=== PATIENT | female | born 1935 | race Caucasian/White ===

== ENCOUNTER 2018-01-08 14:01 | Inpatient (IN) | payer MEDICARE, OTHER ==
[2018-01-08 14:42] LABS: ADD MAN DIFF? NO
[2018-01-08 14:44] LABS: WHITE BLOOD COUNT 8.3 10^3/ul (4.8-10.8)
[2018-01-08 14:44] LABS: BASOPHILS % 0.2 % (0.0-2.0); EOSINOPHILS # 0.2 10^3/ul (0.0-0.5); EOSINOPHILS % 1.9 % (0.0-7.0); HEMATOCRIT 30.8 % (37.0-47.0); HEMOGLOBIN 10.2 g/dl (12.0-16.0); LYMPHOCYTES # 2.4 10^3/ul (0.8-2.9); LYMPHOCYTES % 28.6 % (15.0-51.0); MEAN CORPUSCULAR HEMOGLOBIN 29.2 pg (29.0-33.0); MEAN CORPUSCULAR HGB CONC 33.1 g/dl (32.0-37.0); MEAN CORPUSCULAR VOLUME 88.3 fl (82.0-101.0); MEAN PLATELET VOLUME 10.6 fl (7.4-10.4); MONOCYTE # 0.6 10^3/ul (0.3-0.9); MONOCYTES % 7.2 % (0.0-11.0); NEUTROPHIL # 5.1 10^3/ul (1.6-7.5); NEUTROPHILS % 61.6 % (39.0-77.0); PLATELET COUNT 315 10^3/UL (140-415); RED BLOOD COUNT 3.49 10^6/ul (4.20-5.40); RED CELL DISTRIBUTION WIDTH 14.5 % (11.5-14.5)
[2018-01-08 14:57] LABS: HEMOGLOBIN A1C 5.7 % (0-5.9)
[2018-01-08 15:04] LABS: ANION GAP 20 (8-16); BLOOD UREA NITROGEN 20 mg/dl (7-20); CALCIUM 9.3 mg/dl (8.4-10.2); CARBON DIOXIDE 24 mmol/L (21-31); CHLORIDE 111 mmol/L (97-110); CREATININE 1.23 mg/dl (0.44-1.00); GLUCOSE 114 mg/dl (70-220); PROTIME 13.3 Sec (11.9-14.9); SODIUM 150 mmol/L (135-144)
[2018-01-08 15:05] LABS: PARTIAL THROMBOPLASTIN TIME 23.2 Sec (25.0-35.0)
[2018-01-08 15:18] LABS: TROPONIN-I < 0.012 ng/ml (0.00-0.12)
[2018-01-08 16:13] LABS: ADD UMIC YES; UR ASCORBIC ACID NEGATIVE (NEGATIVE); UR BILIRUBIN (Dip) NEGATIVE (NEGATIVE); UR BLOOD (Dip) 1+ mg/dL (NEGATIVE); UR CLARITY CLEAR (CLEAR); UR COLOR YELLOW (YELLOW); UR GLUCOSE (Dip) NEGATIVE (NEGATIVE); UR KETONES (Dip) NEGATIVE (NEGATIVE); UR LEUKOCYTE ESTERASE (Dip) TRACE Leu/ul (NEGATIVE); UR NITRITE (Dip) NEGATIVE (NEGATIVE); UR RBC 1 /HPF (0-5); UR TOTAL PROTEIN (Dip) NEGATIVE (NEGATIVE); UR UROBILINOGEN (Dip) NEGATIVE (NEGATIVE); UR WBC 10 /HPF (0-5)
[2018-01-08] MEDS: SOD CHLORIDE 0.45% 1,000 ML IV (16:15)
[2018-01-08] MEDS: ASPIRIN 300 MG SUPP PR (16:15)
[2018-01-08] MEDS ORDERED: ACETAMINOPHEN 325 MG TAB PO (16:30)
[2018-01-08] MEDS ORDERED: ONDANSETRON 4 MG INJ IV (16:30)
[2018-01-08] MEDS ORDERED: NACL 0.9% 3 ML SYG IV (17:00)
[2018-01-08] MEDS: SOD CHLORIDE 0.9% 1,000 ML IV (17:04)
[2018-01-08 17:05] LABS: AMPHETAMINE/METHAMPHETAMINE Negative (NEGATIVE); BARBITURATES Negative (NEGATIVE); BENZODIAZEPINES Negative (NEGATIVE); CANNABINOIDS Negative (NEGATIVE); COCAINE Negative (NEGATIVE); OPIATES Negative (NEGATIVE)
[2018-01-08 17:26] LABS: B-TYPE NATRIURETIC PEPTIDE 570 PG/ML (0-450)
[2018-01-08] MEDS: RIVAROXABAN 20 MG TABLET PO (17:29)
[2018-01-08] MEDS: hydrALAzine 20 MG INJ IV (18:44)
[2018-01-08] MEDS: LORAZEPAM 2 MG INJ IV (20:43)
[2018-01-08] MEDS: ACETAMINOPHEN 650 MG SUPP PR (20:43)
[2018-01-08] MEDS ORDERED: HEPARIN 5,000 UNIT/0.5 ML VIAL SC (21:00)
[2018-01-08] MEDS: ATORVASTATIN 80 MG TAB PO (21:00)
[2018-01-08] MEDS: HEPARIN 5,000 UNIT/0.5 ML VIAL SC (21:12)
[2018-01-08] MEDS: morphine 2 MG INJ IV (23:02)
[2018-01-08] MEDS: ONDANSETRON 4 MG INJ IV (23:02)
[2018-01-09] MEDS: hydrALAzine 20 MG INJ IV ×2 (05:50→15:54)
[2018-01-09] MEDS: LEVOTHYROXINE 50 MCG TAB PO (05:51)
[2018-01-09] MEDS: SOD CHLORIDE 0.9% 1,000 ML IV (06:20)
[2018-01-09 07:09] LABS: WHITE BLOOD COUNT 7.5 10^3/ul (4.8-10.8)
[2018-01-09 07:09] LABS: ADD MAN DIFF? NO; BASOPHILS % 0.5 % (0.0-2.0); EOSINOPHILS # 0.2 10^3/ul (0.0-0.5); EOSINOPHILS % 2.5 % (0.0-7.0); HEMATOCRIT 32.4 % (37.0-47.0); HEMOGLOBIN 10.8 g/dl (12.0-16.0); LYMPHOCYTES # 2.7 10^3/ul (0.8-2.9); LYMPHOCYTES % 35.3 % (15.0-51.0); MEAN CORPUSCULAR HEMOGLOBIN 29.3 pg (29.0-33.0); MEAN CORPUSCULAR HGB CONC 33.3 g/dl (32.0-37.0); MEAN PLATELET VOLUME 10.2 fl (7.4-10.4); MONOCYTE # 0.6 10^3/ul (0.3-0.9); MONOCYTES % 8.1 % (0.0-11.0); NEUTROPHILS % 52.8 % (39.0-77.0); PLATELET COUNT 337 10^3/UL (140-415); RED BLOOD COUNT 3.68 10^6/ul (4.20-5.40); RED CELL DISTRIBUTION WIDTH 14.5 % (11.5-14.5)
[2018-01-09 07:30] LABS: ALANINE AMINOTRANSFERASE 34 IU/L (13-69); ALBUMIN 3.9 g/dl (3.3-4.9); ALBUMIN/GLOBULIN RATIO 0.97; ALKALINE PHOSPHATASE 69 IU/L (42-121); ANION GAP 18 (8-16); ASPARTATE AMINO TRANSFERASE 44 IU/L (15-46); BLOOD UREA NITROGEN 17 mg/dl (7-20); CALCIUM 9.2 mg/dl (8.4-10.2); CARBON DIOXIDE 25 mmol/L (21-31); CHLORIDE 112 mmol/L (97-110); GLUCOSE 108 mg/dl (70-220); POTASSIUM 4.1 mmol/L (3.5-5.1); SODIUM 151 mmol/L (135-144); TOTAL PROTEIN 7.9 g/dl (6.1-8.1)
[2018-01-09 07:32] LABS: CHOL/HDL RATIO 3.8 RATIO; CHOLESTEROL 176 mg/dl (100-200); HDL CHOLESTEROL 46 mg/dl (33-92); LDL CHOLESTEROL,CALCULATED 79 mg/dl; TRIGLYCERIDES 256 mg/dl (0-149)
[2018-01-09 07:32] LABS: PHOSPHORUS 3.9 mg/dl (2.5-4.9)
[2018-01-09] MEDS: EXEMESTANE 25 MG TAB PO (11:00)
[2018-01-09] MEDS: ASPIRIN 81 MG TAB PO (11:01)
[2018-01-09] MEDS: HEPARIN 5,000 UNIT/0.5 ML VIAL SC ×2 (11:01→20:28)
[2018-01-09] MEDS: AMLODIPINE 10 MG TAB PO (11:01)
[2018-01-09] MEDS: SOD CHLORIDE 0.45% 1,000 ML IV ×2 (11:40→16:09)
[2018-01-09 14:45] LABS: SODIUM,URINE RANDOM 144 mmol/L (30-90)
[2018-01-09 14:55] LABS: CREATININE,URINE RANDOM 85.97 mg/dl (20-320); PROTEIN/CREAT RATIO 0.32 RATIO
[2018-01-09] MEDS ORDERED: DEXTROSE 5% 1,000 ML IV (16:30)
[2018-01-09] MEDS: ACETAMINOPHEN 650 MG SUPP PR ×3 (16:31→19:47)
[2018-01-09] MEDS: ATORVASTATIN 80 MG TAB PO (21:19)
[2018-01-09] MEDS: LORAZEPAM 2 MG INJ IV (21:46)
[2018-01-10] MEDS: hydrALAzine 20 MG INJ IV (00:18)
[2018-01-10] MEDS: SOD CHLORIDE 0.45% 1,000 ML IV ×2 (00:27→19:10)
[2018-01-10] MEDS: ACETAMINOPHEN 650 MG SUPP PR (01:50)
[2018-01-10] MEDS: LEVOTHYROXINE 50 MCG TAB PO (05:28)
[2018-01-10 07:19] LABS: ADD MAN DIFF? NO
[2018-01-10 07:27] LABS: BASOPHILS % 0.4 % (0.0-2.0); EOSINOPHILS # 0.1 10^3/ul (0.0-0.5); EOSINOPHILS % 1.3 % (0.0-7.0); HEMATOCRIT 31.8 % (37.0-47.0); HEMOGLOBIN 10.5 g/dl (12.0-16.0); LYMPHOCYTES # 3.1 10^3/ul (0.8-2.9); LYMPHOCYTES % 28.8 % (15.0-51.0); MEAN CORPUSCULAR HEMOGLOBIN 29.6 pg (29.0-33.0); MEAN CORPUSCULAR VOLUME 89.6 fl (82.0-101.0); MEAN PLATELET VOLUME 10.6 fl (7.4-10.4); MONOCYTE # 0.9 10^3/ul (0.3-0.9); MONOCYTES % 8.1 % (0.0-11.0); NEUTROPHIL # 6.6 10^3/ul (1.6-7.5); NEUTROPHILS % 60.6 % (39.0-77.0); PLATELET COUNT 331 10^3/UL (140-415); RED BLOOD COUNT 3.55 10^6/ul (4.20-5.40); RED CELL DISTRIBUTION WIDTH 14.6 % (11.5-14.5)
[2018-01-10 07:27] LABS: WHITE BLOOD COUNT 10.9 10^3/ul (4.8-10.8)
[2018-01-10 07:55] LABS: URIC ACID 6.3 mg/dl (3.1-7.9)
[2018-01-10 07:55] LABS: CREATINE KINASE 321 IU/L (23-200)
[2018-01-10 07:58] LABS: ANION GAP 19 (8-16); BLOOD UREA NITROGEN 17 mg/dl (7-20); CALCIUM 9.3 mg/dl (8.4-10.2); CARBON DIOXIDE 22 mmol/L (21-31); CHLORIDE 109 mmol/L (97-110); CREATININE 1.23 mg/dl (0.44-1.00); GLUCOSE 113 mg/dl (70-220); POTASSIUM 4.2 mmol/L (3.5-5.1); SODIUM 146 mmol/L (135-144)
[2018-01-10 08:13] LABS: PHOSPHORUS 3.3 mg/dl (2.5-4.9)
[2018-01-10] MEDS: ASPIRIN 81 MG TAB PO (08:27)
[2018-01-10] MEDS: AMLODIPINE 10 MG TAB PO (08:27)
[2018-01-10] MEDS: HEPARIN 5,000 UNIT/0.5 ML VIAL SC ×2 (08:32→21:20)
[2018-01-10] MEDS: EXEMESTANE 25 MG TAB PO (11:40)
[2018-01-10] MEDS: ATORVASTATIN 80 MG TAB PO (21:18)
[2018-01-10] MEDS: LORAZEPAM 2 MG INJ IV (21:21)
[2018-01-11] MEDS: LEVOTHYROXINE 50 MCG TAB PO (06:14)
[2018-01-11 07:17] LABS: ADD MAN DIFF? NO
[2018-01-11 07:24] LABS: BASOPHILS % 0.4 % (0.0-2.0); EOSINOPHILS # 0.3 10^3/ul (0.0-0.5); EOSINOPHILS % 2.9 % (0.0-7.0); HEMOGLOBIN 10.5 g/dl (12.0-16.0); LYMPHOCYTES # 2.8 10^3/ul (0.8-2.9); LYMPHOCYTES % 27.3 % (15.0-51.0); MEAN CORPUSCULAR HEMOGLOBIN 29.5 pg (29.0-33.0); MEAN CORPUSCULAR HGB CONC 32.8 g/dl (32.0-37.0); MEAN CORPUSCULAR VOLUME 89.9 fl (82.0-101.0); MONOCYTE # 0.8 10^3/ul (0.3-0.9); MONOCYTES % 7.2 % (0.0-11.0); NEUTROPHIL # 6.3 10^3/ul (1.6-7.5); NEUTROPHILS % 60.9 % (39.0-77.0); PLATELET COUNT 332 10^3/UL (140-415); RED BLOOD COUNT 3.56 10^6/ul (4.20-5.40); RED CELL DISTRIBUTION WIDTH 14.4 % (11.5-14.5)
[2018-01-11 07:24] LABS: WHITE BLOOD COUNT 10.4 10^3/ul (4.8-10.8)
[2018-01-11 07:48] LABS: ANION GAP 15 (8-16); BLOOD UREA NITROGEN 15 mg/dl (7-20); CALCIUM 8.9 mg/dl (8.4-10.2); CARBON DIOXIDE 25 mmol/L (21-31); CHLORIDE 110 mmol/L (97-110); CREATININE 1.27 mg/dl (0.44-1.00); GLUCOSE 115 mg/dl (70-220); POTASSIUM 3.9 mmol/L (3.5-5.1); SODIUM 146 mmol/L (135-144)
[2018-01-11] MEDS: AMLODIPINE 10 MG TAB PO (08:52)
[2018-01-11] MEDS: ASPIRIN 81 MG TAB PO (08:53)
[2018-01-11] MEDS: EXEMESTANE 25 MG TAB PO (08:57)
[2018-01-11] MEDS: HEPARIN 5,000 UNIT/0.5 ML VIAL SC (08:58)
== END 2018-01-11 16:04 | disposition home health service (06) | DRG 65 ==
LOC: TEL 01-09 01:44 → E/R 14:01 → MS3 16:19
DX: I63.9 Cerebral infarction, unspecified (principal); N17.9 Acute kidney failure, unspecified; E87.0 Hyperosmolality and hypernatremia; D64.9 Anemia, unspecified; Z95.1 Presence of aortocoronary bypass graft; I25.10 Atherosclerotic heart disease of native coronary artery without angina pectoris; E03.9 Hypothyroidism, unspecified; E66.9 Obesity, unspecified; I89.0 Lymphedema, not elsewhere classified; I12.9 Hypertensive chronic kidney disease with stage 1 through stage 4 chronic kidney disease, or unspecified chronic kidney disease; N18.9 Chronic kidney disease, unspecified; E78.5 Hyperlipidemia, unspecified; Z68.32 Body mass index [BMI] 32.0-32.9, adult; Z90.12 Acquired absence of left breast and nipple; Z85.3 Personal history of malignant neoplasm of breast; Z86.718 Personal history of other venous thrombosis and embolism
CPT/HCPCS: 36415; 70450; 70553; 71045; 76775; 80048; 80053; 80061; 80307; 81001; 81003; 82550; 82570; 82962; 83036; 83735; 83880; 84100; 84300; 84439; 84443; 84484; 84560; 85025; 85610; 85730; 89190; 92610; 93005; 93306; 93970; 93971; 97161; 97167; 99285-25

== ENCOUNTER 2018-11-19 08:41 | Observation (INO) | payer MEDICARE, OTHER ==
[2018-11-19 09:14] LABS: ADD MAN DIFF? NO
[2018-11-19 09:18] LABS: WHITE BLOOD COUNT 6.3 10^3/ul (4.8-10.8)
[2018-11-19 09:18] LABS: BASOPHILS % 0.6 % (0.0-2.0); EOSINOPHILS # 0.2 10^3/ul (0.0-0.5); EOSINOPHILS % 3.8 % (0.0-7.0); HEMATOCRIT 36.8 % (37.0-47.0); HEMOGLOBIN 11.2 g/dl (12.0-16.0); LYMPHOCYTES # 1.7 10^3/ul (0.8-2.9); MEAN CORPUSCULAR HEMOGLOBIN 29.6 pg (29.0-33.0); MEAN CORPUSCULAR HGB CONC 30.4 g/dl (32.0-37.0); MEAN CORPUSCULAR VOLUME 97.1 fl (82.0-101.0); MEAN PLATELET VOLUME 9.9 fl (7.4-10.4); MONOCYTE # 0.5 10^3/ul (0.3-0.9); NEUTROPHIL # 3.8 10^3/ul (1.6-7.5); NEUTROPHILS % 60.3 % (39.0-77.0); PLATELET COUNT 318 10^3/UL (140-415); RED BLOOD COUNT 3.79 10^6/ul (4.20-5.40); RED CELL DISTRIBUTION WIDTH 15.8 % (11.5-14.5)
[2018-11-19 09:38] LABS: INR 1.13; PROTIME 14.6 Sec (11.9-14.9); PT RATIO 1.1
[2018-11-19 09:44] LABS: ADD UMIC YES; ALANINE AMINOTRANSFERASE 19 IU/L (13-69); ALBUMIN 3.8 g/dl (3.3-4.9); ALKALINE PHOSPHATASE 66 IU/L (42-121); ANION GAP 8 (5-13); ASPARTATE AMINO TRANSFERASE 26 IU/L (15-46); BILIRUBIN,INDIRECT 0.1 mg/dl (0-1.1); BILIRUBIN,TOTAL 0.1 mg/dl (0.2-1.3); BLOOD UREA NITROGEN 31 mg/dl (7-20); CALCIUM 9.7 mg/dl (8.4-10.2); CARBON DIOXIDE 28 mmol/L (21-31); CHLORIDE 110 mmol/L (97-110); CREATININE 1.44 mg/dl (0.44-1.00); GLUCOSE 107 mg/dl (70-220); POTASSIUM 4.7 mmol/L (3.5-5.1); SODIUM 146 mmol/L (135-144); UR ASCORBIC ACID 40 mg/dL (NEGATIVE); UR BACTERIA FEW /HPF (NONE SEEN); UR BILIRUBIN (Dip) NEGATIVE (NEGATIVE); UR BLOOD (Dip) 3+ mg/dL (NEGATIVE); UR CLARITY SLIGHTLY CLOUDY (CLEAR); UR COLOR YELLOW (YELLOW); UR GLUCOSE (Dip) NEGATIVE (NEGATIVE); UR KETONES (Dip) NEGATIVE (NEGATIVE); UR LEUKOCYTE ESTERASE (Dip) NEGATIVE Leu/ul (NEGATIVE); UR NITRITE (Dip) NEGATIVE (NEGATIVE); UR RBC 123 /HPF (0-5); UR SPECIFIC GRAVITY (Dip) 1.014 (1.003-1.030); UR SQUAMOUS EPITHELIAL CELL FEW /HPF (FEW); UR TOTAL PROTEIN (Dip) 1+ mg/dl (NEGATIVE); UR UROBILINOGEN (Dip) NEGATIVE (NEGATIVE); UR WBC 19 /HPF (0-5)
[2018-11-19 09:55] LABS: TROPONIN-I 0.012 ng/ml (0.000-0.120)
[2018-11-19 09:59] LABS: AMPHETAMINE/METHAMPHETAMINE Negative (NEGATIVE); BARBITURATES Negative (NEGATIVE); BENZODIAZEPINES Negative (NEGATIVE); CANNABINOIDS Negative (NEGATIVE); COCAINE Negative (NEGATIVE); OPIATES Negative (NEGATIVE)
[2018-11-19 10:00] LABS: T3 UPTAKE 28.9 % (23.5-40.5); T4 (THYROXINE) 8.3 ug/dl (5.5-11.0)
[2018-11-19 10:13] LABS: ACETAMINOPHEN < 10.0 ug/ml (10.0-30.0)
[2018-11-19 10:43] LABS: ETHANOL < 10.0 mg/dl (0-0); SALICYLATE < 1.0 mg/dl (5.0-30.0)
[2018-11-19] MEDS ORDERED: NACL 0.9% 3 ML SYG IV (12:00)
[2018-11-19] MEDS ORDERED: morphine SULFATE/PF (2 MG/2 ML) SYG IV (12:00)
[2018-11-19] MEDS ORDERED: HYDROCODONE/APAP (5/325) TAB PO (12:00)
[2018-11-19] MEDS ORDERED: DOCUSATE SODIUM 100 MG CAP PO (12:00)
[2018-11-19] MEDS ORDERED: ONDANSETRON 4 MG INJ IV (12:00)
[2018-11-19] MEDS ORDERED: LABETALOL HCL 20MG INJ IV (13:00)
[2018-11-19 14:45] LABS: LACTIC ACID 1.2 mmol/L (0.5-2.0)
[2018-11-19] MEDS: NYSTATIN 15 GM CR TOP ×2 (15:45→22:25)
[2018-11-19] MEDS: CEFTRIAXONE 1 GM/50 ML (PMX) 50 ML IVPB (15:46)
[2018-11-19] MEDS: RIVAROXABAN 20 MG TABLET PO (17:41)
[2018-11-19] MEDS: TAMOXIFEN 10 MG TAB PO (17:51)
[2018-11-19] MEDS: ACETAMINOPHEN 325 MG TAB PO (20:38)
[2018-11-19] MEDS: ATORVASTATIN 80 MG TAB PO (20:40)
[2018-11-19] MEDS: ZOLPIDEM 5 MG TAB PO (21:38)
[2018-11-20] MEDS: PANTOPRAZOLE (EC) 40 MG TAB PO (06:13)
[2018-11-20] MEDS: LEVOTHYROXINE 50 MCG TAB PO (06:13)
[2018-11-20 06:50] LABS: ADD MAN DIFF? NO
[2018-11-20 06:55] LABS: BASOPHILS % 0.6 % (0.0-2.0); EOSINOPHILS # 0.3 10^3/ul (0.0-0.5); EOSINOPHILS % 4.7 % (0.0-7.0); HEMATOCRIT 37.4 % (37.0-47.0); HEMOGLOBIN 11.5 g/dl (12.0-16.0); LYMPHOCYTES % 28.5 % (15.0-51.0); MEAN CORPUSCULAR HEMOGLOBIN 29.6 pg (29.0-33.0); MEAN CORPUSCULAR HGB CONC 30.7 g/dl (32.0-37.0); MEAN CORPUSCULAR VOLUME 96.1 fl (82.0-101.0); MEAN PLATELET VOLUME 10.4 fl (7.4-10.4); MONOCYTE # 0.6 10^3/ul (0.3-0.9); MONOCYTES % 8.4 % (0.0-11.0); NEUTROPHILS % 57.5 % (39.0-77.0); PLATELET COUNT 332 10^3/UL (140-415); RED BLOOD COUNT 3.89 10^6/ul (4.20-5.40); RED CELL DISTRIBUTION WIDTH 15.8 % (11.5-14.5)
[2018-11-20 06:55] LABS: WHITE BLOOD COUNT 6.9 10^3/ul (4.8-10.8)
[2018-11-20 07:18] LABS: ANION GAP 8 (5-13); BLOOD UREA NITROGEN 26 mg/dl (7-20); CALCIUM 9.5 mg/dl (8.4-10.2); CARBON DIOXIDE 25 mmol/L (21-31); CHLORIDE 111 mmol/L (97-110); CREATININE 1.45 mg/dl (0.44-1.00); GLUCOSE 108 mg/dl (70-220); MAGNESIUM 2.2 mg/dl (1.7-2.5); PHOSPHORUS 3.7 mg/dl (2.5-4.9); POTASSIUM 4.2 mmol/L (3.5-5.1); SODIUM 144 mmol/L (135-144)
[2018-11-20] MEDS ORDERED: NON-FORMULARY/PATIENT OWN MED (Esomeprazole Mag Trihydrate (Nexium) 40 MG) PO (07:25)
[2018-11-20] MEDS: ASPIRIN 81 MG TAB PO (08:03)
[2018-11-20] MEDS: NYSTATIN 15 GM CR TOP (08:04)
[2018-11-20] MEDS ORDERED: NON-FORMULARY/PATIENT OWN MED (Tamoxifen Citrate* 20 MG) PO (09:00)
[2018-11-20] MEDS ORDERED: ENOXAPARIN 40 MG/0.4 ML SYG SC (09:00)
[2018-11-20] MEDS ORDERED: EXEMESTANE 25 MG TAB PO ×2 (09:00)
[2018-11-20] MEDS: AMLODIPINE 10 MG TAB PO (10:23)
[2018-11-20] MEDS: CEFTRIAXONE 1 GM/50 ML (PMX) 50 ML IVPB (11:48)
[2018-11-20] MEDS: TAMOXIFEN 10 MG TAB PO (11:53)
== END 2018-11-20 14:45 | disposition home or self-care (01) ==
LOC: E/R 08:41 → TEL 10:28
PROVIDERS: Internal Medicine
DX: G93.41 Metabolic encephalopathy (principal); E03.9 Hypothyroidism, unspecified; I10 Essential (primary) hypertension; Z86.718 Personal history of other venous thrombosis and embolism
CPT/HCPCS: 36415; 70450; 70551; 71045; 80048; 80053; 80307; 81001; 82962; 83036; 83605; 83735; 84100; 84436; 84479; 84484; 85025; 85610; 87086; 87400; 92610; 93005; 93306; 93880; 97162; 99217; 99285-25; G0378

== ENCOUNTER 2018-12-26 08:24 | Inpatient (IN) | payer MEDICARE, OTHER ==
[2018-12-26 10:28] LABS: ADD MAN DIFF? NO
[2018-12-26 10:36] LABS: BASOPHILS % 0.6 % (0.0-2.0); EOSINOPHILS # 0.3 10^3/ul (0.0-0.5); EOSINOPHILS % 3.6 % (0.0-7.0); HEMOGLOBIN 9.2 g/dl (12.0-16.0); LYMPHOCYTES # 2.4 10^3/ul (0.8-2.9); LYMPHOCYTES % 34.2 % (15.0-51.0); MEAN CORPUSCULAR HEMOGLOBIN 29.4 pg (29.0-33.0); MEAN CORPUSCULAR HGB CONC 31.7 g/dl (32.0-37.0); MEAN CORPUSCULAR VOLUME 92.7 fl (82.0-101.0); MEAN PLATELET VOLUME 11.1 fl (7.4-10.4); MONOCYTE # 0.4 10^3/ul (0.3-0.9); MONOCYTES % 5.7 % (0.0-11.0); NEUTROPHIL # 3.9 10^3/ul (1.6-7.5); NEUTROPHILS % 55.5 % (39.0-77.0); PLATELET COUNT 222 10^3/UL (140-415); RED BLOOD COUNT 3.13 10^6/ul (4.20-5.40); RED CELL DISTRIBUTION WIDTH 15.2 % (11.5-14.5)
[2018-12-26 10:50] LABS: ADD UMIC YES
[2018-12-26 10:51] LABS: UR CLARITY CLOUDY (CLEAR); UR COLOR BROWN (YELLOW); UR GLUCOSE (Dip) 1+ mg/dL (NEGATIVE); UR KETONES (Dip) TRACE mg/dL (NEGATIVE); UR TOTAL PROTEIN (Dip) 2+ mg/dl (NEGATIVE); URINE SPECIFIC GRAVITY (Dip) 1.017 (1.003-1.030)
[2018-12-26 10:52] LABS: UR BACTERIA MODERATE /HPF (NONE SEEN); UR BILIRUBIN (Dip) NEGATIVE (NEGATIVE); UR BLOOD (Dip) 3+ mg/dL (NEGATIVE); UR LEUKOCYTE ESTERASE (Dip) NEGATIVE Leu/ul (NEGATIVE); UR NITRITE (Dip) NEGATIVE (NEGATIVE); UR UROBILINOGEN (Dip) NEGATIVE (NEGATIVE)
[2018-12-26 10:53] LABS: URINE RBCS >200 /HPF (0)
[2018-12-26 10:58] LABS: ANION GAP 6 (5-13); BLOOD UREA NITROGEN 39 mg/dl (7-20); CALCIUM 9.7 mg/dl (8.4-10.2); CARBON DIOXIDE 24 mmol/L (21-31); CHLORIDE 111 mmol/L (97-110); CREATININE 1.61 mg/dl (0.44-1.00); GLUCOSE 113 mg/dl (70-220); POTASSIUM 4.4 mmol/L (3.5-5.1); SODIUM 141 mmol/L (135-144); UR ASCORBIC ACID NEGATIVE (NEGATIVE); UR SPECIFIC GRAVITY (Dip) 1.017 (1.003-1.030)
[2018-12-26 11:13] LABS: PROTIME 16.3 Sec (11.9-14.9); PT RATIO 1.3
[2018-12-26 11:14] LABS: PARTIAL THROMBOPLASTIN TIME 24.5 Sec (23.0-35.0)
[2018-12-26] MEDS ORDERED: ACETAMINOPHEN 325 MG TAB PO (13:00)
[2018-12-26] MEDS ORDERED: ONDANSETRON 4 MG INJ IV ×2 (13:00→14:00)
[2018-12-26] MEDS ORDERED: NACL 0.9% 3 ML SYG IV (14:00)
[2018-12-26] MEDS ORDERED: DOCUSATE SODIUM 100 MG CAP PO (14:00)
[2018-12-26 15:18] LABS: IRON 91 ug/dl (35-150)
[2018-12-26 15:27] LABS: % IRON SATURATION 35 % SAT (22-52); TOTAL IRON BINDING CAPACITY 257 ug/dl (241-421)
[2018-12-26 16:32] LABS: CREATININE,URINE RANDOM 51.32 mg/dl (20-320)
[2018-12-26 16:32] LABS: SODIUM,URINE RANDOM 102 mmol/L (30-90)
[2018-12-26 16:42] LABS: ADD UMIC YES; UR ASCORBIC ACID NEGATIVE (NEGATIVE); UR BACTERIA FEW /HPF (NONE SEEN); UR BILIRUBIN (Dip) NEGATIVE (NEGATIVE); UR BLOOD (Dip) 3+ mg/dL (NEGATIVE); UR BUDDING YEAST FEW /HPF (NONE SEEN); UR CLARITY CLOUDY (CLEAR); UR COLOR RED (YELLOW); UR GLUCOSE (Dip) NEGATIVE (NEGATIVE); UR KETONES (Dip) NEGATIVE (NEGATIVE); UR LEUKOCYTE ESTERASE (Dip) TRACE Leu/ul (NEGATIVE); UR MUCUS FEW /HPF (NONE SEEN); UR NITRITE (Dip) NEGATIVE (NEGATIVE); UR NONSQUAMOUS EPITHELIAL CELL 6 /HPF (NONE SEEN); UR RBC > 182 /HPF (0-5); UR SPECIFIC GRAVITY (Dip) 1.011 (1.003-1.030); UR SQUAMOUS EPITHELIAL CELL FEW /HPF (FEW); UR TOTAL PROTEIN (Dip) 2+ mg/dl (NEGATIVE); UR UROBILINOGEN (Dip) NEGATIVE (NEGATIVE); UR WBC 92 /HPF (0-5)
[2018-12-26 18:18] LABS: HEMATOCRIT 30.4 % (37.0-47.0); HEMOGLOBIN 9.6 g/dl (12.0-16.0)
[2018-12-26] MEDS: ATORVASTATIN 40 MG TAB PO (20:17)
[2018-12-26] MEDS: LORAZEPAM 0.5 MG TAB PO (21:17)
[2018-12-27] MEDS: IOHEXOL 300MG/ML 30 ML BTL
[2018-12-27] MEDS: PANTOPRAZOLE (EC) 40 MG TAB PO (06:21)
[2018-12-27] MEDS ORDERED: METOCLOPRAMIDE 10 MG INJ (07:00)
[2018-12-27] MEDS ORDERED: PROPOFOL 200 MG INJ (07:00)
[2018-12-27] MEDS ORDERED: LIDOCAINE 2% (SDV) 5 ML INJ (07:00)
[2018-12-27 07:56] LABS: ADD MAN DIFF? NO
[2018-12-27 08:00] LABS: WHITE BLOOD COUNT 6.3 10^3/ul (4.8-10.8)
[2018-12-27 08:00] LABS: BASOPHIL # 0.1 10^3/ul (0.0-0.1); BASOPHILS % 0.8 % (0.0-2.0); EOSINOPHILS # 0.4 10^3/ul (0.0-0.5); EOSINOPHILS % 5.7 % (0.0-7.0); HEMOGLOBIN 10.2 g/dl (12.0-16.0); LYMPHOCYTES # 1.8 10^3/ul (0.8-2.9); LYMPHOCYTES % 29.3 % (15.0-51.0); MEAN CORPUSCULAR HEMOGLOBIN 28.7 pg (29.0-33.0); MEAN CORPUSCULAR HGB CONC 30.9 g/dl (32.0-37.0); MEAN CORPUSCULAR VOLUME 92.7 fl (82.0-101.0); MEAN PLATELET VOLUME 10.9 fl (7.4-10.4); MONOCYTE # 0.4 10^3/ul (0.3-0.9); MONOCYTES % 5.7 % (0.0-11.0); NEUTROPHIL # 3.7 10^3/ul (1.6-7.5); PLATELET COUNT 249 10^3/UL (140-415); RED BLOOD COUNT 3.56 10^6/ul (4.20-5.40); RED CELL DISTRIBUTION WIDTH 14.9 % (11.5-14.5)
[2018-12-27 08:52] LABS: ALANINE AMINOTRANSFERASE 22 IU/L (13-69); ALBUMIN 3.6 g/dl (3.3-4.9); ALBUMIN/GLOBULIN RATIO 0.94; ALKALINE PHOSPHATASE 59 IU/L (42-121); ANION GAP 2 (5-13); ASPARTATE AMINO TRANSFERASE 27 IU/L (15-46); BILIRUBIN,INDIRECT 0.1 mg/dl (0-1.1); BILIRUBIN,TOTAL 0.1 mg/dl (0.2-1.3); BLOOD UREA NITROGEN 31 mg/dl (7-20); CALCIUM 9.8 mg/dl (8.4-10.2); CARBON DIOXIDE 28 mmol/L (21-31); CHLORIDE 114 mmol/L (97-110); CREATININE 1.48 mg/dl (0.44-1.00); GLUCOSE 113 mg/dl (70-220); MAGNESIUM 2.1 mg/dl (1.7-2.5); PHOSPHORUS 3.8 mg/dl (2.5-4.9); POTASSIUM 4.5 mmol/L (3.5-5.1); SODIUM 144 mmol/L (135-144); TOTAL PROTEIN 7.4 g/dl (6.1-8.1)
[2018-12-27] MEDS: LEVOTHYROXINE 50 MCG TAB PO (08:52)
[2018-12-27] MEDS: AMLODIPINE 10 MG TAB PO (08:52)
[2018-12-27] MEDS: METOPROLOL (XL) 25 MG TAB PO (08:54)
[2018-12-27] MEDS: EXEMESTANE 25 MG TAB PO ×2 (09:00→20:42)
[2018-12-27] MEDS ORDERED: ASPIRIN 81 MG TAB PO (09:00)
[2018-12-27] MEDS ORDERED: NON-FORMULARY/PATIENT OWN MED (Tamoxifen Citrate* 20 MG) PO (09:00)
[2018-12-27] MEDS: TAMOXIFEN 10 MG TAB PO ×2 (09:00→20:43)
[2018-12-27] MEDS: ALTEPLASE (CATHFLO) 2 MG INJ CATHETER (13:42)
[2018-12-27] MEDS ORDERED: MIDAZOLAM 1 MG/ML 2 ML INJ (16:26)
[2018-12-27] MEDS ORDERED: FENTAnyl 50 MCG/ML VIAL (16:26)
[2018-12-27] MEDS ORDERED: ONDANSETRON 4 MG INJ (16:28)
[2018-12-27] MEDS ORDERED: PHENYLephrine (100 MCG/ML) 5ML SYG (17:25)
[2018-12-27] MEDS ORDERED: LEVALBUTEROL (NEB) 1.25 MG/0.5 ML AMP HHN (17:30)
[2018-12-27] MEDS ORDERED: LABETALOL HCL 20MG INJ IV (17:30)
[2018-12-27] MEDS ORDERED: FENTAnyl 50 MCG/ML VIAL IV (17:30)
[2018-12-27] MEDS ORDERED: DIPHENHYDRAMINE 50 MG INJ IV (17:30)
[2018-12-27] MEDS ORDERED: ONDANSETRON 4 MG INJ IV (17:30)
[2018-12-27] MEDS ORDERED: HYDROmorphONE 1 MG/5 ML IV SYRINGE IV (17:30)
[2018-12-27] MEDS ORDERED: hydrALAzine 20 MG INJ IV (17:30)
[2018-12-27] MEDS ORDERED: hydrALAzine 20 MG INJ (18:29)
[2018-12-27] MEDS: ATORVASTATIN 40 MG TAB PO (20:39)
[2018-12-27] MEDS: LORAZEPAM 0.5 MG TAB PO (21:16)
[2018-12-28 05:56] LABS: ADD MAN DIFF? NO
[2018-12-28 06:06] LABS: BASOPHIL # 0.1 10^3/ul (0.0-0.1); BASOPHILS % 0.6 % (0.0-2.0); EOSINOPHILS # 0.1 10^3/ul (0.0-0.5); EOSINOPHILS % 1.6 % (0.0-7.0); HEMATOCRIT 31.7 % (37.0-47.0); LYMPHOCYTES # 2.2 10^3/ul (0.8-2.9); LYMPHOCYTES % 24.1 % (15.0-51.0); MEAN CORPUSCULAR HEMOGLOBIN 29.1 pg (29.0-33.0); MEAN CORPUSCULAR HGB CONC 31.5 g/dl (32.0-37.0); MEAN CORPUSCULAR VOLUME 92.2 fl (82.0-101.0); MEAN PLATELET VOLUME 11.6 fl (7.4-10.4); MONOCYTE # 0.6 10^3/ul (0.3-0.9); MONOCYTES % 6.4 % (0.0-11.0); NEUTROPHILS % 66.9 % (39.0-77.0); PLATELET COUNT 251 10^3/UL (140-415); RED BLOOD COUNT 3.44 10^6/ul (4.20-5.40); RED CELL DISTRIBUTION WIDTH 15.7 % (11.5-14.5)
[2018-12-28] MEDS: PANTOPRAZOLE (EC) 40 MG TAB PO (06:16)
[2018-12-28 07:00] LABS: ANION GAP 10 (5-13); BLOOD UREA NITROGEN 28 mg/dl (7-20); CALCIUM 9.3 mg/dl (8.4-10.2); CARBON DIOXIDE 25 mmol/L (21-31); CHLORIDE 111 mmol/L (97-110); CREATININE 1.52 mg/dl (0.44-1.00); GLUCOSE 117 mg/dl (70-220); PHOSPHORUS 3.3 mg/dl (2.5-4.9); POTASSIUM 4.3 mmol/L (3.5-5.1); SODIUM 146 mmol/L (135-144)
[2018-12-28] MEDS: LEVOTHYROXINE 50 MCG TAB PO (08:28)
[2018-12-28] MEDS: METOPROLOL (XL) 25 MG TAB PO (08:28)
[2018-12-28] MEDS: AMLODIPINE 10 MG TAB PO (08:28)
[2018-12-28] MEDS: SENNA TAB PO ×3 (13:40→20:28)
[2018-12-28 16:25] LABS: CREATININE, RANDOM URINE 52 mg/dL (20-275); MICROALBUMIN/CREATININE RATIO 500 (<30)
[2018-12-28] MEDS: LORAZEPAM 0.5 MG TAB PO (20:25)
[2018-12-28] MEDS: ATORVASTATIN 40 MG TAB PO (20:28)
[2018-12-29 05:49] LABS: ADD MAN DIFF? NO
[2018-12-29] MEDS: PANTOPRAZOLE (EC) 40 MG TAB PO (05:50)
[2018-12-29 05:52] LABS: BASOPHIL # 0.1 10^3/ul (0.0-0.1); BASOPHILS % 0.8 % (0.0-2.0); EOSINOPHILS # 0.4 10^3/ul (0.0-0.5); EOSINOPHILS % 5.2 % (0.0-7.0); HEMATOCRIT 33.1 % (37.0-47.0); HEMOGLOBIN 10.4 g/dl (12.0-16.0); LYMPHOCYTES # 2.6 10^3/ul (0.8-2.9); LYMPHOCYTES % 33.5 % (15.0-51.0); MEAN CORPUSCULAR HGB CONC 31.4 g/dl (32.0-37.0); MEAN CORPUSCULAR VOLUME 92.2 fl (82.0-101.0); MEAN PLATELET VOLUME 11.7 fl (7.4-10.4); MONOCYTE # 0.6 10^3/ul (0.3-0.9); MONOCYTES % 7.5 % (0.0-11.0); NEUTROPHIL # 4.1 10^3/ul (1.6-7.5); NEUTROPHILS % 52.5 % (39.0-77.0); PLATELET COUNT 260 10^3/UL (140-415); RED BLOOD COUNT 3.59 10^6/ul (4.20-5.40); RED CELL DISTRIBUTION WIDTH 15.9 % (11.5-14.5)
[2018-12-29 05:52] LABS: WHITE BLOOD COUNT 7.8 10^3/ul (4.8-10.8)
[2018-12-29 06:11] LABS: ANION GAP 11 (5-13); BLOOD UREA NITROGEN 24 mg/dl (7-20); CALCIUM 9.3 mg/dl (8.4-10.2); CARBON DIOXIDE 24 mmol/L (21-31); CHLORIDE 111 mmol/L (97-110); CREATININE 1.45 mg/dl (0.44-1.00); GLUCOSE 132 mg/dl (70-220); MAGNESIUM 2.2 mg/dl (1.7-2.5); PHOSPHORUS 3.4 mg/dl (2.5-4.9); POTASSIUM 4.2 mmol/L (3.5-5.1); SODIUM 146 mmol/L (135-144)
[2018-12-29] MEDS: ACETAMINOPHEN 325 MG TAB PO (06:22)
[2018-12-29] MEDS: AMLODIPINE 10 MG TAB PO (07:50)
[2018-12-29] MEDS: METOPROLOL (XL) 25 MG TAB PO (07:50)
[2018-12-29] MEDS: hydrALAzine 20 MG INJ IV (08:40)
[2018-12-29] MEDS: LEVOTHYROXINE 50 MCG TAB PO (08:41)
[2018-12-29] MEDS: SENNA TAB PO (08:41)
[2018-12-29] MEDS: TAMOXIFEN 10 MG TAB PO (11:29)
[2018-12-29] MEDS: EXEMESTANE 25 MG TAB PO (11:31)
[2018-12-29] MEDS ORDERED: HEPARIN (100 UNITS/ML) 5 ML SYG CATHETER (12:00)
[2018-12-29] MEDS: HEPARIN (100 UNITS/ML) 5 ML SYG CATHETER (12:33)
== END 2018-12-29 12:45 | disposition home or self-care (01) | DRG 699 ==
LOC: E/R 08:24 → 2NE 13:00
PROC: BT14YZZ Fluoroscopy of Kidneys, Ureters and Bladder using Other Contrast (ICD-10-PCS; principal; 2018-12-27 17:30)
PROC: 0T938ZX Drainage of Right Kidney Pelvis, Via Natural or Artificial Opening Endoscopic, Diagnostic (ICD-10-PCS; 2018-12-27 17:30)
DX: N28.89 Other specified disorders of kidney and ureter (principal); D62 Acute posthemorrhagic anemia; R31.0 Gross hematuria; N17.9 Acute kidney failure, unspecified; Z95.1 Presence of aortocoronary bypass graft; I25.10 Atherosclerotic heart disease of native coronary artery without angina pectoris; E78.5 Hyperlipidemia, unspecified; E03.9 Hypothyroidism, unspecified; I12.9 Hypertensive chronic kidney disease with stage 1 through stage 4 chronic kidney disease, or unspecified chronic kidney disease; N18.9 Chronic kidney disease, unspecified; R19.09 Other intra-abdominal and pelvic swelling, mass and lump; Z90.12 Acquired absence of left breast and nipple; Z85.3 Personal history of malignant neoplasm of breast; Z79.82 Long term (current) use of aspirin; Z79.02 Long term (current) use of antithrombotics/antiplatelets
CPT/HCPCS: 36415; 71045; 72195; 74176; 74420; 76775; 76856; 80048; 80053; 81001; 81003; 82043; 83540; 83735; 84100; 84155; 84300; 85014; 85018; 85025; 85610; 85730; 87086; 88104; 88305; 93005; 99285-25; G0378